=== PATIENT | female | born 1965 | race Caucasian/White ===

== ENCOUNTER → 2016-12-05 | Outpatient (CLI) | payer OTHER ==
[~2016-12-05] MED LIST: IOPAMIDOL (ISOVUE-300) 100 ML BTL ONE
== END ==
LOC: FIMAGING 16:40
PROVIDERS: ATTEND Emergency Medicine
DX: R10.32 Left lower quadrant pain (principal); R16.1 Splenomegaly, not elsewhere classified
CPT/HCPCS: Q9967